=== PATIENT | female | born 1950 | race Caucasian/White ===

== ENCOUNTER 2017-08-23 08:15 | Observation (INO) | payer BC, MEDICARE ==
[~2017-08-23] VITALS: Ht 185.4 cm; Wt 101.3 kg
[2017-08-23] MEDS ORDERED: FINA5TAB4 PO (08:44)
[2017-08-23] MEDS ORDERED: ESTROGEN PO (08:44)
[2017-08-23] MEDS ORDERED: SPIR100T2 PO (08:44)
[2017-08-23] MEDS ORDERED: ASPIRIN 81 MG TABLET CHEW PO ONE (09:30)
[2017-08-23 09:37] LABS: BASOPHILS # (AUTO) 0.03 x10^3/uL (0-0.1); BASOPHILS % (AUTO) 0 % (0-1); EOSINOPHILS # (AUTO) 0.18 x10^3/uL (0-0.4); EOSINOPHILS % (AUTO) 2 % (1-7); LYMPHOCYTES # (AUTO) 3.76 x10^3/uL (1-3.4); LYMPHOCYTES % (AUTO) 35 % (22-44); MD NO; MEAN CORPUSCULAR HGB CONC 34.3 g/dL (32.4-35.8); MEAN CORPUSCULAR VOLUME 90.4 fL (80-100); MEAN PLATELET VOLUME 8.2 fL (7.4-10.4); MONOCYTES % (AUTO) 8 % (2-9); NEUTROPHILS # (AUTO) 5.88 x10^3/uL (1.8-6.8); NEUTROPHILS % (AUTO) 55 % (42-75); PLATELET COUNT 222 x10^3/uL (130-400); RED BLOOD COUNT 4.83 x10^6/uL (3.82-5.3); RED CELL DISTRIBUTION WIDTH 13.7 % (9.6-15.2)
[2017-08-23 09:47] LABS: ALANINE AMINOTRANSFERASE 26 U/L (12-78); ALBUMIN 3.9 g/dL (3.4-5.0); ANION GAP 8 mmol/L (5-15); CALCIUM 8.6 mg/dL (8.5-10.1); CHLORIDE 103 mmol/L (98-107); CREATININE 1.43 mg/dL (0.55-1.02)
[2017-08-23] MEDS ORDERED: ASPIRIN 81 MG TABLET CHEW ONE (09:50)
[2017-08-23] MEDS ORDERED: NITROGLYCERIN SINGLE TAB 0.4 MG SL ONE ×2 (09:50→10:53)
[2017-08-23 09:52] LABS: ALKALINE PHOSPHATASE 37 U/L (45-117); BILIRUBIN,TOTAL 0.6 mg/dL (0.2-1.0); TOTAL PROTEIN 7.4 g/dL (6.4-8.2); TROPONIN I < 0.015 ng/mL (0.000-0.045)
[2017-08-23] MEDS: NITROGLYCERIN SINGLE TAB 0.4 MG SL PRN ×2 (09:55→10:20)
[2017-08-23 10:31] LABS: INTERNATIONAL NORMALIZED RATIO 0.97 (0.93-1.1)
[2017-08-23] MEDS ORDERED: DOCUSATE 100 MG CAPSULE PO PRN (11:30)
[2017-08-23] MEDS ORDERED: BISACODYL 10 MG SUPP PR PRN (11:30)
[2017-08-23] MEDS: HEPARIN 5,000 UNITS/ML, 1ML SQ SCH ×2 (11:30→21:56)
[2017-08-23] MEDS ORDERED: POLYETHYLENE GLYCOL 17 GM PACKET PO PRN (11:30)
[2017-08-23] MEDS ORDERED: NS + 20MEQ KCL 1,000 ML IV SCH (11:30)
[2017-08-23] MEDS ORDERED: ONDANSETRON 2MG/ML, 2ML IVPush PRN (11:30)
[2017-08-23] MEDS ORDERED: HYDROcodone/APAP 5/325 TABLET PO PRN (11:30)
[2017-08-23] MEDS ORDERED: LABETALOL 5MG/ML, 20ML IVPush PRN (11:30)
[2017-08-23] MEDS ORDERED: morphine SULFATE 10 MG/ML, 1ML IVPush PRN (11:30)
[2017-08-23] MEDS ORDERED: HEPARIN 5,000 UNITS/ML, 1ML ONE (12:18)
[2017-08-23 13:55] VITALS: BP 138/86
[2017-08-23] MEDS: ACETAMINOPHEN 325 MG TABLET PO PRN (15:34)
[2017-08-23 16:59] LABS: TROPONIN I < 0.015 ng/mL (0.000-0.045)
[2017-08-23 18:55] VITALS: BP 127/81
[2017-08-23] MEDS: SPIRONOLACTONE 25 MG TABLET PO SCH (21:55)
[2017-08-23 23:57] LABS: TROPONIN I < 0.015 ng/mL (0.000-0.045)
[2017-08-24 02:33] VITALS: BP 132/64
[2017-08-24] MEDS: HEPARIN 5,000 UNITS/ML, 1ML SQ SCH ×2 (02:37→11:51)
[2017-08-24] MEDS: ACETAMINOPHEN 325 MG TABLET PO PRN (02:38)
[2017-08-24 06:09] LABS: CHLORIDE 105 mmol/L (98-107)
[2017-08-24 06:17] LABS: BASOPHILS # (AUTO) 0.02 x10^3/uL (0-0.1); BASOPHILS % (AUTO) 0 % (0-1); EOSINOPHILS # (AUTO) 0.17 x10^3/uL (0-0.4); EOSINOPHILS % (AUTO) 2 % (1-7); LYMPHOCYTES # (AUTO) 3.14 x10^3/uL (1-3.4); LYMPHOCYTES % (AUTO) 40 % (22-44); MD NO; MEAN CORPUSCULAR HEMOGLOBIN 31.3 pg (27.0-34.8); MEAN CORPUSCULAR HGB CONC 34.6 g/dL (32.4-35.8); MEAN CORPUSCULAR VOLUME 90.5 fL (80-100); MEAN PLATELET VOLUME 8.6 fL (7.4-10.4); MONOCYTES % (AUTO) 9 % (2-9); NEUTROPHILS # (AUTO) 3.89 x10^3/uL (1.8-6.8); NEUTROPHILS % (AUTO) 49 % (42-75); PLATELET COUNT 210 x10^3/uL (130-400); RED BLOOD COUNT 4.54 x10^6/uL (3.82-5.3); RED CELL DISTRIBUTION WIDTH 13.2 % (9.6-15.2)
[2017-08-24 06:20] LABS: ANION GAP 9 mmol/L (5-15); CALCIUM 8.1 mg/dL (8.5-10.1); CREATININE 1.44 mg/dL (0.55-1.02)
[2017-08-24] MEDS: SPIRONOLACTONE 25 MG TABLET PO SCH (07:56)
[2017-08-24] MEDS ORDERED: REGADENOSON 0.4 MG/5 ML SYRINGE ONE (08:03)
[2017-08-24 08:31] VITALS: BP 137/79
[2017-08-24] MEDS ORDERED: FINASTERIDE 5 MG TABLET PO SCH (09:00)
[2017-08-24] MEDS ORDERED: ESTROGEN HOMEMEDPO SCH (09:00)
== END 2017-08-24 14:33 | disposition home or self-care (01) ==
LOC: ED 10:07 → EDIP 11:30 → 5SO 13:52 → DCLOUNGE 08-24 14:21
PROVIDERS: ADMIT Internal Medicine; ATTEND Internal Medicine
DX: R07.89 Other chest pain (principal); I11.9 Hypertensive heart disease without heart failure; N17.0 Acute kidney failure with tubular necrosis; D72.829 Elevated white blood cell count, unspecified
CPT/HCPCS: 36415; 71010; 78452; 80048; 80053; 83880; 84484; 85025; 85379; 85610; 85730; 93005; 93017; 96360; 96361; 96372; 99285; A9502; C9898; G0378; J1644; J2785; J3480